=== PATIENT | female | born 1990 | race Caucasian/White ===

== ENCOUNTER 2024-08-24 10:55 | Inpatient (IN) ==
--- NOTE | 2024-08-24 11:47 | Emergency Department Note ---
Impression & Plan Alcohol abuse with withdrawal, Fall, Acute pain of left knee, CHI (closed head injury), Contusion of face ED Provider Note NAME: CARLOS KOEHLER AGE: 33 SEX: F : 1990 ARRIVES VIA: Walk-In INFORMANT: Patient, Friend ED PROVIDER(S): Dyaln Murray MD CHIEF COMPLAINT: Alcohol use, fall MEDICAL DECISION MAKING: Patient presents due to concern for fall. The patient does have significant mechanism of injury but this occurred greater than 8 hours ago which would have been around the time of her last drink she believes. IV was established and blood work was obtained along with an alcohol level. CT head cervical spine and face obtained. The patient did have plain x-rays performed of the chest and pelvis for screening purposes given the mechanism but the patient has no evidence of bruising or TTP over that area. Patient did have extremity films completed of the bilateral lower extremities. Patient ordered Ofirmev and ice pack applied. Patient's blood work shows a normal white count H&H and platelet count kidney function is unremarkable. Mild ovation anion gap at 13. Alcohol of 105. The patient's plain images as well as CTs do not show any obvious fracture. I did inform the patient of these findings. The patient did have a negative FAST exam at bedside. After further discussion the patient is concerned about the possibility of withdrawal. I did discuss possibility of withdrawal treatment as well as detox in hospital. Patient would like to do this. Patient does have mild tremors and associated tachycardia. Patient was ordered IV Ativan 2 mg and alcohol withdrawal protocol initiated. I did speak the on-call hospital service Dulce Hartamn PA-C and the patient was admitted by Dr. Worrell. I discussed with the inpatient service that the patient was not ambulated in light of the patient's left knee pain. The patient does not have overt fracture on x- ray but if clinically indicated may benefit from a CT of the knee. Critical Care: I have personally spent 35 minutes of critical care time in direct management of this patient. This includes bedside care, interpretation of diagnostic studies, and testing, discussion with consultants, patient, and family members, and other require inpatient management activities. This 35 minutes is in excess of all separately billable procedures. Discussion w/ other healthcare providers: Dulce Hartman PA-C and Dr. Worrell Prior /Outside records reviewed: None Differential diagnosis: Fracture, dislocation, contusion, strain, sprain, ICH, hemothorax, intra- abdominal injury, anemia among other causes were considered. Diagnostics, as interpreted by me: ECG: Normal sinus rhythm, rate of 52, normal intervals, normal axis no ST elevations or T WI. Cardiac monitoring: An order was placed for continuous cardiac monitoring. The monitor shows a rate of 102 with tachycardic and regular rhythm. Patient was placed on pulse oximetry Medical decision rules: None Imaging studies: I informally interpreted the patient's left knee x-ray does not show obvious fracture or dislocation with formal report to follow. HPI: Patient presents due to concern for fall. The patient reportedly fell down approximate 12 steps around 3 AM in the morning. Patient is accompanied by a friend who reports that the patient was blacked out at that time. The patient does admit to a fair Zaidi drinking last evening. The patient states that she primarily has pain to her left knee. Patient does not remember the fall. She does not take any blood thinning medications. The patient states that she does believe that she struck the left side of her face but was able to get some ice on it this morning. The patient denies any vomiting. Patient is hoping to get some help for her drinking as she does know that her alcohol use is a problem. Patient denies any chest pains or difficulty with breathing. Patient Nuys any abdominal pain or back pain. No neck pain. Patient states that her primary concern is she feels as though she cannot bear weight on her left knee. PAST MEDICAL HISTORY: No pertinent past medical history PAST SURGICAL HISTORY: No pertinent past surgical history SOCIAL HISTORY: Alcohol use. Tobacco use. Denies drug use. Speaks Algerian. HOME MEDICATIONS: See Below ALLERGIES: See Below VITALS: See Below PHYSICAL EXAMINATION: GENERAL: NAD, non-toxic. Left-sided facial swelling noted. EYE EXAM: Normal conjunctiva. PERRL, no anisocoria and EOM's grossly intact w/o pain. No hyphema or hypopyon. No proptosis. No subconjunctival hemorrhage. Head: Left-sided forehead and facial swelling with associated ecchymosis. No periorbital swelling. No proptosis. OROPHARYNX: Moist mucus membranes, grossly normal dentition. NECK: Trachea midline, no stridor. Supple, no nuchal rigidity, no adenopathy, non-tender. No signs of meningismus. FROM of the neck with good chin to chest and neck extension. No midline C-spine TTP. Chest: No reproducible anterior lateral posterior rib pain. LUNGS: Clear to auscultation. Normal chest wall mechanics. HEART: NSR, no MRG. ABDOMEN: Abdomen soft, non-tender, no masses, no rebound or guarding. BACK: No CVA TTP. No midline or paraspinal thoracic or lumbar TTP. No bruising noted. SKIN: Bruising is noted to the left knee as well as the left side of the face. UPPER EXTREMITIES: Upper extremities are grossly normal. No TTP or deformity. LOWER EXTREMITIES: Right lower extremity with mild TTP to the right ankle no obvious deformity. Left sided knee pain and associated ecchymosis. Difficulty with flexion secondary to pain. Neurovascular intact distally and compartments are soft. NEURO EXAM: A&O x3, cranial nerves II-XII grossly intact, normal speech, moves all 4 extremities. Past Med/Surg History Problem List (Updated 08/24/24 @ 19:09 by Dylan Murray MD) Contusion of face (Acute) CHI (closed head injury) (Acute) Acute pain of left knee (Acute) Alcohol abuse with withdrawal (Acute) Tobacco use disorder Left leg weakness Pain of left knee and lower leg Fall (Acute) Alcohol withdrawal syndrome without complication Alcohol use disorder, moderate, dependence Depression Social History Smoking Status: Current every day smoker Tobacco Type: Cigarettes Preferred Language: Algerian Feels Safe at Home: Yes Allergies Allergies Allergy/AdvReac Type Severity Reaction Status Date / Time none Allergy Unknown Uncoded 08/24/24 16:22 Home Meds Home Medications Medication Instructions Recorded Confirmed No Known Home Medications 08/24/24 08/24/24 Results & Data (ED) Vital Signs Vital Signs - 24 hr 08/24/24 11:25 08/24/24 16:19 08/24/24 16:19 Temperature 36.9 C Temperature Source Temporal Artery Scan Pulse Rate 114 H 84 Pulse Rate [Right Finger] 84 Respiratory Rate 18 22 18 Respiratory Effort / Characteristics Spontaneous Non-Labored Spontaneous Respiratory Depth Normal Normal Respiratory Pattern Regular Blood Pressure 172/89 H Blood Pressure [Right Arm] 139/84 Blood Pressure Mean 116 Blood Pressure Mean [Right Arm] 102 Pulse Oximetry 100 99 98 Oxygen Delivery Method Room Air Room Air Room Air Sepsis Recent Fever Within 48 Hours No Sepsis New/Unexplained Change in Mental Status N/A Sepsis Action Taken by Nursing No Action Required 08/24/24 16:23 08/24/24 17:44 Temperature 37.1 C Temperature Source Oral Pulse Rate 87 Pulse Rate [Right Finger] 102 H Respiratory Rate 16 Respiratory Effort / Characteristics Non-Labored Spontaneous Respiratory Depth Normal Respiratory Pattern Regular Blood Pressure Blood Pressure [Right Arm] 125/80 Blood Pressure Mean Blood Pressure Mean [Right Arm] 95 Pulse Oximetry 96 Oxygen Delivery Method Room Air Sepsis Recent Fever Within 48 Hours Sepsis New/Unexplained Change in Mental Status Sepsis Action Taken by [facility] Medications Current Medication List: was personally reviewed by me Laboratory Data Attestation: I reviewed the patient's lab results. 08/24/24 11:53 08/24/24 11:53 Lab Results 08/24/24 Range/Units 11:53 WBC 9.09 (4.8-10.8) K/ul RBC 4.49 (4.20-5.40) M/uL Hgb 13.8 (12.0-16.0) g/dl Hct 40.6 (37.0-47.0) % MCV 90.4 (80.0-100.0) fL MCH 30.7 (25.0-34.0) pg MCHC 34.0 (32.0-36.0) g/dL RDW Std Deviation 42.3 (36.4-46.3) fL RDW Coeff of Pierre 12.8 (11.5-14.5) % Plt Count 379 (130-400) K/uL MPV 8.6 L (9.4-12.4) fL Immature Gran % (Auto) 0.2 % Neut % (Auto) 66.9 % Lymph % (Auto) 25.3 % Erath % (Auto) 6.5 % Eos % (Auto) 0.4 % Baso % (Auto) 0.7 % Neut # (Auto) 6.08 (1.40-6.50) K/uL Lymph # (Auto) 2.30 (1.20-3.40) K/uL Erath # (Auto) 0.59 (0.11-0.59) K/uL Eos # (Auto) 0.04 (0.00-0.50) K/uL Baso # (Auto) 0.06 (0.00-0.20) K/uL Immature Gran # (Auto) 0.02 (0.01-0.20) K/uL Sodium 141 (136-145) mmol/L Potassium 3.7 (3.5-5.1) mmol/L Chloride 104 (98-107) mmol/L Carbon Dioxide 24 (21-32) mmol/L Anion Gap 13 H (3-11) BUN 14 (6-23) mg/dl Creatinine 0.68 (0.6-1.2) mg/dl Est Cr Clr Drug Dosing 102.6 ml/min eGFR 118.60 BUN/Creatinine Ratio 20.6 H (10-20) Glucose 102 H (70-99(Fasting)) mg/dl Calcium 8.8 (8.6-10.3) mg/dl Total Bilirubin 0.7 (0.2-1.0) mg/dl AST 27 (13-39) U/L ALT 18 (7-52) U/L Alkaline Phosphatase 75 (34-104) U/L Total Protein 7.9 (6.0-8.3) gm/dl Albumin 4.6 (3.4-5.0) gm/dl Globulin 3.3 (2.5-4.0) gm/dl Albumin/Globulin Ratio 1.4 (0.9-2) Ethyl Alcohol mg/dL 105.5 H (<10.0) mg/dl Administered Medications Discontinued Medications Gabapentin (Gabapentin 600 Mg Tab) 1,200 mg PO NOW STA Stop: 08/24/24 16:15 Last Admin: 08/24/24 17:46 Dose: 1,200 mg Documented By: REJI Sodium Chloride (Nss) 500 mls @ 999 mls/hr IV .Q31M RIA Stop: 08/24/24 12:15 Last Infusion: 08/24/24 13:19 Dose: Infused Documented By: Admin: 08/24/24 12:05 Dose: 999 mls/hr Documented By: AGUSTÍN Acetaminophen (Ofirmev) 1,000 mg in 100 mls @ 400 mls/hr IV NOW STA Stop: 08/24/24 11:58 Last Infusion: 08/24/24 13:19 Dose: Infused Documented By: Admin: 08/24/24 12:05 Dose: 400 mls/hr Documented By: AGUSTÍN Lorazepam (Lorazepam 2 Mg/1 Ml Vial) 2 mg IV NOW STA Stop: 08/24/24 15:23 Last Admin: 08/24/24 16:21 Dose: 2 mg Documented By: REJI Imaging Data Radiologist's Impression: Cervical Spine CT 08/24/24 11:44 CT cervical spine wo con CLINICAL HISTORY: etoh, fall, L sided facial contusion TECHNIQUE: Multidetector row helical CT of the cervical spine was performed without administration of intravenous contrast. Coronal and sagittal reformations were obtained. Automated dose lowering techniques and/or adjustment according to patient size were utilized for this exam. Comparison: None available at the time of this dictation. FINDINGS: No acute fractures or subluxations are identified. The vertebral body heights and disk spaces are well maintained. The alignment is normal. Soft tissues are unremarkable. IMPRESSION: No evidence of acute bony injury. ACT 112: Negative or not required by law. Electronically signed by: Eugene Chavez M.D. 08/24/2024 1:[address] 08/24/24 11:[address] WITHOUT CONTRAST CLINICAL HISTORY: etoh, fall, L sided facial contusion COMPARISON STUDY: MRI of the brain February 11, 2010. TECHNIQUE: A maxillofacial CT was performed without IV contrast. Coronal and sagittal reformats were viewed. Automated exposure control was utilized for the study. A dose lowering technique was utilized adhering to the principles of ALARA. FINDINGS: Left facial/temporal scalp contusions are present. The globes are intact. There is no retrobulbar hematoma. No acute facial bone fracture is present. Alignment of the temporomandibular joints is anatomic anatomic. There is no skull base fracture. There is mild sinus mucosal thickening. IMPRESSION: No acute facial fracture. ACT 112: Negative or not required by law. Electronically signed by: Jerman Trevino M.D. 08/24/2024 2:[address] 08/24/24 11:44 CT OF THE HEAD WITHOUT CONTRAST CLINICAL HISTORY: etoh, fall, L sided facial contusion COMPARISON STUDY: MRI of the brain February 11, 2010. CT DOSE: 1313.96 mGy.cm TECHNIQUE: Helical axial images of the head were obtained without IV contrast. Automated exposure control was utilized for the study. A dose lowering technique was utilized adhering to the principles of ALARA. FINDINGS: No acute intracranial hemorrhage, midline shift or mass effect is present. The ventricular system is unremarkable. The basal cisterns are patent. No extra-axial collections are present. There are no findings to suggest acute dural sinus thrombosis or acute territorial infarct. Left temporal scalp contusion is present. There are no calvarial fractures. IMPRESSION: 1. No acute intracranial findings. 2. Left frontal scalp contusion. No calvarial fractures. ACT 112: Negative or not required by law. Electronically signed by: Jerman Trevino M.D. 08/24/2024 2:02 PM Chest X-Ray 08/24/24 11:45 XR chest 1V portable CLINICAL HISTORY: Trauma COMPARISON STUDY: No previous studies for comparison. FINDINGS: Lung volumes are normal. Lungs are clear. There is no pneumothorax or pleural effusion. Cardiac size is normal. Mediastinal contours are normal. There is no evidence for pulmonary edema. IMPRESSION: No acute cardiopulmonary findings. ACT 112: Negative or not required by law. Electronically signed by: Jeramn Trevino M.D. 08/24/2024 2:55 PM Pelvis X-Ray 08/24/24 11:45 XR pelvis 1-2V routine CLINICAL HISTORY: Trauma TECHNIQUE: A single frontal view of the pelvis was obtained. Comparison: None available at the time of this dictation. FINDINGS: There is no evidence of an acute fracture. Joint spaces are well-preserved. No soft tissue abnormality is seen. IMPRESSION: No evidence of acute osseous injury. ACT 112: Negative or not required by law. Electronically signed by: Eugene Chavez M.D. 08/24/2024 2:56 PM Ankle X-Ray 08/24/24 11:47 XR ankle RT min 3V routine CLINICAL HISTORY: Right ankle pain following injury. COMPARISON: None FINDINGS: Alignment of the right ankle is anatomic. There is no acute fracture. Talar dome is intact. Joint spaces are preserved. IMPRESSION: No fracture or dislocation within the right ankle. ACT 112: Negative or not required by law. Electronically signed by: Jerman Trevino M.D. 08/24/2024 2:54 PM Femur X-Ray 08/24/24 11:47 XR femur LT 2V routine CLINICAL HISTORY: Lower Extremity Trauma COMPARISON: CT of the abdomen and pelvis December 23, 2005. FINDINGS: There is no left femoral fracture. Alignment of the left hip and left knee is anatomic. No osseous lesions within the left femur are present. IMPRESSION: No left femoral fracture. ACT 112: Negative or not required by law. Electronically signed by: Jerman Trevino M.D. 08/24/2024 2:48 PM Knee X-Ray 08/24/24 11:47 XR knee LT 1 or 2V routine CLINICAL HISTORY: Left knee pain following injury. COMPARISON: None FINDINGS: Alignment of the left knee is anatomic. There is no acute fracture. There is no joint effusion. There are no osseous lesions. IMPRESSION: No fractures within the left knee. No left knee joint effusion. ACT 112: Negative or not required by law. Electronically signed by: Jerman Trevino M.D. 08/24/2024 2:54 PM Tibia/Fibula X-Ray 08/24/24 11:47 XR tibia fibula LT 2V CLINICAL HISTORY: Lower leg trauma TECHNIQUE: 2 radiographic views of the left leg were obtained. Comparison: None available at the time of this dictation. FINDINGS: There is no evidence of an acute fracture. Joint spaces are well-preserved. No soft tissue abnormality is seen. IMPRESSION: No evidence of acute osseous injury. ACT 112: Negative or not required by law. Electronically signed by: Eugene Chavez M.D. 08/24/2024 2:53 PM Discharge Plan Visit Data Chief Complaint: Fall Stated Complaint: FELL, LT KNEE PAIN/CAN'T WALK, HIT LT SIDE OF HEAD ED Provider: Dylan Murray Discharge Problem: Alcohol abuse with withdrawal, Fall, Acute pain of left knee, CHI (closed head injury), Contusion of face Forms Stand Alone Forms: [employer] Prescriptions Prescriptions: No Action No Known Home Medications Referrals Referrals: PCP,NO [Physician] - Discharge Problem: Fall Qualifiers: Encounter type: initial encounter Qualified Code(s): W19.XXXA - Unspecified fall, initial encounter CHI (closed head injury) Qualifiers: Encounter type: initial encounter Qualified Code(s): S09.90XA - Unspecified injury of head, initial encounter Contusion of face Qualifiers: Encounter type: initial encounter Qualified Code(s): S00.83XA - Contusion of other part of head, initial encounter
[2024-08-24] MEDS: SODIUM CHLORIDE 0.9% 500 ML IV SCH (12:05)
[2024-08-24] MEDS: ACETAMINOPHEN 1,000 MG/100 ML VIAL IV STA (12:05)
[2024-08-24 12:36] LABS: Basophils # (auto) 0.06 K/uL (0.00-0.20); Basophils % (auto) 0.7 %; Eosinophils # (auto) 0.04 K/uL (0.00-0.50); Eosinophils % (auto) 0.4 %; Hematocrit (blood only) 40.6 % (37.0-47.0); Hemoglobin 13.8 g/dl (12.0-16.0); Immature Granulocytes # (auto) 0.02 K/uL (0.01-0.20); Immature Granulocytes % (auto) 0.2 %; Lymphocytes % (auto) 25.3 %; Mean Corpuscular Hemoglobin 30.7 pg (25.0-34.0); Mean Corpuscular Volume 90.4 fL (80.0-100.0); Mean Platelet Volume 8.6 fL (9.4-12.4); Monocytes # (auto) 0.59 K/uL (0.11-0.59); Monocytes % (auto) 6.5 %; Neutrophils # (auto) 6.08 K/uL (1.40-6.50); Neutrophils % (auto) 66.9 %; Platelet Count 379 K/uL (130-400); RDW Coefficient of Variation 12.8 % (11.5-14.5); RDW Standard Deviation 42.3 fL (36.4-46.3); Red Blood Count 4.49 M/uL (4.20-5.40); White Blood Count 9.09 K/ul (4.8-10.8)
[2024-08-24 12:51] LABS: Albumin Globulin Ratio 1.4 (0.9-2); Albumin Level 4.6 gm/dl (3.4-5.0); BUN Creatinine Ratio 20.6 (10-20); Bilirubin,Total 0.7 mg/dl (0.2-1.0); Calcium 8.8 mg/dl (8.6-10.3); Creatinine Clr Calc Pharmacy 102.6 ml/min; Globulin 3.3 gm/dl (2.5-4.0); Potassium 3.7 mmol/L (3.5-5.1); Total Protein 7.9 gm/dl (6.0-8.3)
--- NOTE | 2024-08-24 14:01 | CT Scan Report ---
CT cervical spine wo con CLINICAL HISTORY: etoh, fall, L sided facial contusion TECHNIQUE: Multidetector row helical CT of the cervical spine was performed without administration of intravenous contrast. Coronal and sagittal reformations were obtained. Automated dose lowering techn iques and/or adjustment according to patient size were utilized for this exam. Comparison: None available at the time of this dictation. FINDINGS: No acute fractures or subluxations are identified. The vertebral body heights and disk spaces are wel l maintained. The alignment is normal. Soft tissues are unremarkable. IMPRESSION: No evidence of acute bony injury. ACT 112: Negative or not required by law. Electronically signed by: Eugene Chavez M.D. 08/24/2024 1:59 PM
--- NOTE | 2024-08-24 14:03 | CT Scan Report ---
CT OF THE HEAD WITHOUT CONTRAST CLINICAL HISTORY: etoh, fall, L sided facial contusion COMPARISON STUDY: MRI of the brain February 11, 2010. CT DOSE: 1313.96 mGy.cm TECHNIQUE: Helical axial images of the head were obtained without IV contrast. Automated exposure con trol was utilized for the study. A dose lowering technique was utilized adhering to the principles o f ALARA. FINDINGS: No acute intracranial hemorrhage, midline shift or mass effect is present. The ventricular system is unremarkable. The basal cisterns are patent. No extra-axial collections are present. There are no findings to suggest acute dural sinus thrombosis or acute territorial infarct. Left temporal s calp contusion is present. There are no calvarial fractures. IMPRESSION: 1. No acute intracranial findings. 2. Left frontal scalp contusion. No calvarial fractures. ACT 112: Negative or not required by law. Electronically signed by: Jerman Trevino M.D. 08/24/2024 2:02 PM
--- NOTE | 2024-08-24 14:19 | Electrocardiogram Report ---
Test Reason : Blood Pressure : */* mmHG Vent. Rate : 82 BPM Atrial Rate : 82 BPM P-R Int : 126 ms QRS Dur : 82 ms QT Int : 372 ms P-R-T Axes : 51 15 37 degrees QTcB Int : 434 ms Normal sinus rhythm with sinus arrhythmia Normal ECG No previous ECGs available Confirmed by Michael Galan ([id number]) on 08/24/2024 2:19:04 PM Referred By: Confirmed By: Michael Galan
--- NOTE | 2024-08-24 14:29 | CT Scan Report ---
MAXILLOFACIAL CT WITHOUT CONTRAST CLINICAL HISTORY: etoh, fall, L sided facial contusion COMPARISON STUDY: MRI of the brain February 11, 2010. TECHNIQUE: A maxillofacial CT was performed without IV contrast. Coronal and sagittal reformats were viewed. Automated exposure control was utilized for the study. A dose lowering technique was utiliz ed adhering to the principles of ALARA. FINDINGS: Left facial/temporal scalp contusions are present. The globes are intact. There is no retro bulbar hematoma. No acute facial bone fracture is present. Alignment of the temporomandibular joints is anatomic anatomic. There is no skull base fracture. There is mild sinus mucosal thickening. IMPRESSION: No acute facial fracture. ACT 112: Negative or not required by law. Electronically signed by: Jerman Trevino M.D. 08/24/2024 2:28 PM
--- NOTE | 2024-08-24 14:49 | XRay Report ---
XR femur LT 2V routine CLINICAL HISTORY: Lower Extremity Trauma COMPARISON: CT of the abdomen and pelvis December 23, 2005. FINDINGS: There is no left femoral fracture. Alignment of the left hip and left knee is anatomic. No osseous lesions within the left femur are present. IMPRESSION: No left femoral fracture. ACT 112: Negative or not required by law. Electronically signed by: Jerman Trevino M.D. 08/24/2024 2:48 PM
--- NOTE | 2024-08-24 14:55 | XRay Report ---
XR knee LT 1 or 2V routine CLINICAL HISTORY: Left knee pain following injury. COMPARISON: None FINDINGS: Alignment of the left knee is anatomic. There is no acute fracture. There is no joint effu sheila. There are no osseous lesions. IMPRESSION: No fractures within the left knee. No left knee joint effusion. ACT 112: Negative or not required by law. Electronically signed by: Jerman Trevino M.D. 08/24/2024 2:54 PM
--- NOTE | 2024-08-24 14:55 | XRay Report ---
XR tibia fibula LT 2V CLINICAL HISTORY: Lower leg trauma TECHNIQUE: 2 radiographic views of the left leg were obtained. Comparison: None available at the time of this dictation. FINDINGS: There is no evidence of an acute fracture. Joint spaces are well-preserved. No soft tissue abnormalit y is seen. IMPRESSION: No evidence of acute osseous injury. ACT 112: Negative or not required by law. Electronically signed by: Eugene Chavez M.D. 08/24/2024 2:53 PM
--- NOTE | 2024-08-24 14:56 | XRay Report ---
XR ankle RT min 3V routine CLINICAL HISTORY: Right ankle pain following injury. COMPARISON: None FINDINGS: Alignment of the right ankle is anatomic. There is no acute fracture. Talar dome is intact . Joint spaces are preserved. IMPRESSION: No fracture or dislocation within the right ankle. ACT 112: Negative or not required by law. Electronically signed by: Jerman Trevino M.D. 08/24/2024 2:54 PM
--- NOTE | 2024-08-24 14:57 | XRay Report ---
XR pelvis 1-2V routine CLINICAL HISTORY: Trauma TECHNIQUE: A single frontal view of the pelvis was obtained. Comparison: None available at the time of this dictation. FINDINGS: There is no evidence of an acute fracture. Joint spaces are well-preserved. No soft tissue abnormalit y is seen. IMPRESSION: No evidence of acute osseous injury. ACT 112: Negative or not required by law. Electronically signed by: Eugene Chavez M.D. 08/24/2024 2:56 PM
--- NOTE | 2024-08-24 14:57 | XRay Report ---
XR chest 1V portable CLINICAL HISTORY: Trauma COMPARISON STUDY: No previous studies for comparison. FINDINGS: Lung volumes are normal. Lungs are clear. There is no pneumothorax or pleural effusion. Car diac size is normal. Mediastinal contours are normal. There is no evidence for pulmonary edema. IMPRESSION: No acute cardiopulmonary findings. ACT 112: Negative or not required by law. Electronically signed by: Jerman Trevino M.D. 08/24/2024 2:55 PM
[2024-08-24] MEDS ORDERED: Ativan IV Alcohol Withdrawal--Active Protocol IV PRN (15:22)
[2024-08-24] MEDS ORDERED: LORazepam 2 MG/1 ML VIAL IV PRN ×3 (15:22)
[2024-08-24] MEDS ORDERED: DICLOFENAC SOD 1% GEL 100 GM TUBE EXT PRN (16:16)
[2024-08-24] MEDS: LORazepam 2 MG/1 ML VIAL IV STA (16:21)
--- NOTE | 2024-08-24 16:51 | History & Physical Report ---
Date of Service August 24, 2024 Assessment & Plan (1) Fall: Plan: EKG within normal limits, no evidence of neurologic etiology -denies precursor, does not remember falling -denies other symptoms such as chest pain or SOB -likely mechanical in setting of alcohol intoxication --physical therapy ordered --voltaren cream and tylenol for leeft leg pain (2) Alcohol withdrawal syndrome without complication: Plan: -as evidenced by tremors and fatigue, tachycardia -no evidence of seizures or end organ damage --start gabapentin taper with loading dose for withdrawal --ativan for seizures or high withdrawal scores --seizure practautions and telemetry ordered --will discuss with social work team regarding rehab placement post admission (3) Alcohol use disorder, moderate, dependence: Plan: -drinks a fifth of vodka daily -interested in sobriety -has tremors on exam, denies seizures in past with alcohol withdrawal -feels safe at home, good family support system --start low dose thiamine and folic acid --check B12 level in morning, PT/INR, hepatic panel -check HIV, Hep C in the morning (4) Depression: Plan: -per patient has been contributing factor to alcohol use --f/u outpatient with PCP regarding starting treatment for depression (5) Pain of left knee and lower leg: Plan: -2/2 mechanical fall --voltaren cream and tylenol (6) Left leg weakness: Plan: -2/2 mechanical fall, imaging without evidence of fracture --PT ordered (7) Tobacco use disorder: Plan: -smokes a pack a day --nicotine patch prn Plan -regular diet, lovenox, miralax for bowel regiment I spent a total of 75 minutes coordinating, documenting, and providing care for this patient excluding time spent in the performance of separately billed services. Admission and Anticipated Discharge Date Anticipated date of discharge: 08/26/24 History of Present Illness Chief Complaint: Fall Primary Care Provider: Rosa Rodriguez DO 33-year-old female with no past medical history presenting post fall. Fall happened last night after consuming a large amount of alcohol. She blacked out during this time. She states she likely hit her head. She also states she has some left leg pain. Did not denote any dizziness chest pain or other associated symptoms. Does not remember falling. No history of drug use. Feels safe at home. Denies abuse. Daily tobacco smoker. Drinks about 1/5 of alcohol daily. Family is history of alcohol use. Interested in getting sober. Allergies Allergy/AdvReac Type Severity Reaction Status Date / Time none Allergy Unknown Uncoded 08/24/24 16:22 Home Medications Medication Instructions Recorded Confirmed Type No Known Home Medications 08/24/24 08/24/24 History Past Med/Surg History Problem List (Updated 08/24/24 @ 16:49 by Aki Oconnor MD) Tobacco use disorder Left leg weakness Pain of left knee and lower leg Fall Alcohol withdrawal syndrome without complication Alcohol use disorder, moderate, dependence Depression Social History Smoking Status: Current every day smoker Tobacco Type: Cigarettes Preferred Language: Syriac Feels Safe at Home: Yes Review of Systems Review of Systems: Constitutional: fatigue ENT/Mouth: No Hearing Changes, No Ear Pain, No Nasal Congestion, No Sinus Pain, No Hoarseness, No sore throat, No Rhinorrhea, No Swallowing Difficulty Eyes: No Eye Pain, No Swelling, No Redness, No Foreign Body, No Discharge, No Vision Changes Cardiovascular: No Chest Pain, No SOB, No PND, No Dyspnea on Exertion, No Orthopnea, No Claudication, No Edema, No Palpitations Respiratory: No Cough, No Sputum, No Wheezing, No Smoke Exposure, No Dyspnea Gastrointestinal: No Nausea, No Vomiting, No Diarrhea, No Constipation, No Pain, No Heartburn, No Anorexia, No Dysphagia, No Hematochezia, No Melena, No Flatulence, No Jaundice Genitourinary: No Dysmenorrhea, No DUB, No Dyspareunia, No Dysuria, No Urinary Frequency, No Hematuria, No Urinary Incontinence, No Urgency, No Flank Pain, No Urinary Flow Changes, No Hesitancy Musculoskeletal: left knee and leg pain Neuro: slight weakness of left knee (2/2 pain) Psych: depression Heme/Lymph: brusing on left knee, swelling noted, left frontal facial contusion Endocrine: No Polyuria, No Polydipsia, No Temperature Intolerance Physical Exam Physical Exam: VITALS: Reviewed. WEIGHT/BMI reviewed. GEN: appears slightly uncomfortable PSYCH: Good Judgment. AOx3. Normal memory, mood, and affect. HEENT -Head: noted left facial brusing -Eyes: PERRL, EOMI. No discharge or redn ess; -Ears: External ears are normal. Normal TMs. -Nose: Normal nares. -Mouth and throat: MMM. Normal gums, muc sebastián, palate,. Good dentition. NECK: Supple, with no masses. CV: tachycardic, regular rhythm LUNGS: CTAB, no w/r/c. ABD: Soft, NT/ND, NBS, no masses or organomegaly. : N/A SKIN: Warm, well perfused. No skin rashes or abnormal lesions. MSK: slight left leg weakness EXT: No clubbing, cyanosis, or edema. NEURO: slight left leg weakness 2/2 bruising and fall, no other defcitis or weakness, bilateral hand tremors noted Results & Data Results & Data Vital Signs (Past 12 Hours) Vital Signs Temp Pulse Resp BP Pulse Ox O2 Del Method 08/24/24 11:25 36.9 C 114 H 18 172/89 H 100 Room Air Laboratory Results Laboratory Results WBC 9.09 K/ul (4.8-10.8) 08/24/24 11:53 RBC 4.49 M/uL (4.20-5.40) 08/24/24 11:53 Hgb 13.8 g/dl (12.0-16.0) 08/24/24 11:53 Hct 40.6 % (37.0-47.0) 08/24/24 11:53 MCV 90.4 fL (80.0-100.0) 08/24/24 11:53 MCH 30.7 pg (25.0-34.0) 08/24/24 11:53 MCHC 34.0 g/dL (32.0-36.0) 08/24/24 11:53 RDW Std Deviation 42.3 fL (36.4-46.3) 08/24/24 11:53 RDW Coeff of Pierre 12.8 % (11.5-14.5) 08/24/24 11:53 Plt Count 379 K/uL (130-400) 08/24/24 11:53 MPV 8.6 fL (9.4-12.4) L 08/24/24 11:53 Immature Gran % (Auto) 0.2 % 08/24/24 11:53 Neut % (Auto) 66.9 % 08/24/24 11:53 Lymph % (Auto) 25.3 % 08/24/24 11:53 Hinds % (Auto) 6.5 % 08/24/24 11:53 Eos % (Auto) 0.4 % 08/24/24 11:53 Baso % (Auto) 0.7 % 08/24/24 11:53 Neut # (Auto) 6.08 K/uL (1.40-6.50) 08/24/24 11:53 Lymph # (Auto) 2.30 K/uL (1.20-3.40) 08/24/24 11:53 Hinds # (Auto) 0.59 K/uL (0.11-0.59) 08/24/24 11:53 Eos # (Auto) 0.04 K/uL (0.00-0.50) 08/24/24 11:53 Baso # (Auto) 0.06 K/uL (0.00-0.20) 08/24/24 11:53 Immature Gran # (Auto) 0.02 K/uL (0.01-0.20) 08/24/24 11:53 Sodium 141 mmol/L (136-145) 08/24/24 11:53 Potassium 3.7 mmol/L (3.5-5.1) 08/24/24 11:53 Chloride 104 mmol/L (98-107) 08/24/24 11:53 Carbon Dioxide 24 mmol/L (21-32) 08/24/24 11:53 Anion Gap 13 (3-11) H 08/24/24 11:53 BUN 14 mg/dl (6-23) 08/24/24 11:53 Creatinine 0.68 mg/dl (0.6-1.2) 08/24/24 11:53 Est Cr Clr Drug Dosing 102.6 ml/min 08/24/24 11:53 eGFR 118.60 08/24/24 11:53 BUN/Creatinine Ratio 20.6 (10-20) H 08/24/24 11:53 Glucose 102 mg/dl (70-99(Fasting)) H 08/24/24 11:53 Calcium 8.8 mg/dl (8.6-10.3) 08/24/24 11:53 Total Bilirubin 0.7 mg/dl (0.2-1.0) 08/24/24 11:53 AST 27 U/L (13-39) 08/24/24 11:53 ALT 18 U/L (7-52) 08/24/24 11:53 Alkaline Phosphatase 75 U/L (34-104) 08/24/24 11:53 Total Protein 7.9 gm/dl (6.0-8.3) 08/24/24 11:53 Albumin 4.6 gm/dl (3.4-5.0) 08/24/24 11:53 Globulin 3.3 gm/dl (2.5-4.0) 08/24/24 11:53 Albumin/Globulin Ratio 1.4 (0.9-2) 08/24/24 11:53 Ethyl Alcohol mg/dL 105.5 mg/dl (<10.0) H 08/24/24 11:[address] 08/24/24 11:44 CT cervical spine wo con CLINICAL HISTORY: etoh, fall, L sided facial contusion TECHNIQUE: Multidetector row helical CT of the cervical spine was performed without administration of intravenous contrast. Coronal and sagittal reformations were obtained. Automated dose lowering techniques and/or adjustment according to patient size were utilized for this exam. Comparison: None available at the time of this dictation. FINDINGS: No acute fractures or subluxations are identified. The vertebral body heights and disk spaces are well maintained. The alignment is normal. Soft tissues are unremarkable. IMPRESSION: No evidence of acute bony injury. ACT 112: Negative or not required by law. Electronically signed by: Eugene Chavez M.D. 08/24/2024 1:[address] 08/24/24 11:[address] WITHOUT CONTRAST CLINICAL HISTORY: etoh, fall, L sided facial contusion COMPARISON STUDY: MRI of the brain February 11, 2010. TECHNIQUE: A maxillofacial CT was performed without IV contrast. Coronal and sagittal reformats were viewed. Automated exposure control was utilized for the study. A dose lowering technique was utilized adhering to the principles of ALARA. FINDINGS: Left facial/temporal scalp contusions are present. The globes are intact. There is no retrobulbar hematoma. No acute facial bone fracture is present. Alignment of the temporomandibular joints is anatomic anatomic. There is no skull base fracture. There is mild sinus mucosal thickening. IMPRESSION: No acute facial fracture. ACT 112: Negative or not required by law. Electronically signed by: Jerman Trevino M.D. 08/24/2024 2:[address] 08/24/24 11:44 CT OF THE HEAD WITHOUT CONTRAST CLINICAL HISTORY: etoh, fall, L sided facial contusion COMPARISON STUDY: MRI of the brain February 11, 2010. CT DOSE: 1313.96 mGy.cm TECHNIQUE: Helical axial images of the head were obtained without IV contrast. Automated exposure control was utilized for the study. A dose lowering technique was utilized adhering to the principles of ALARA. FINDINGS: No acute intracranial hemorrhage, midline shift or mass effect is present. The ventricular system is unremarkable. The basal cisterns are patent. No extra-axial collections are present. There are no findings to suggest acute dural sinus thrombosis or acute territorial infarct. Left temporal scalp contusion is present. There are no calvarial fractures. IMPRESSION: 1. No acute intracranial findings. 2. Left frontal scalp contusion. No calvarial fractures. ACT 112: Negative or not required by law. Electronically signed by: Jerman Trevino M.D. 08/24/2024 2:02 PM Chest X-Ray 08/24/24 11:45 XR chest 1V portable CLINICAL HISTORY: Trauma COMPARISON STUDY: No previous studies for comparison. FINDINGS: Lung volumes are normal. Lungs are clear. There is no pneumothorax or pleural effusion. Cardiac size is normal. Mediastinal contours are normal. There is no evidence for pulmonary edema. IMPRESSION: No acute cardiopulmonary findings. ACT 112: Negative or not required by law. Electronically signed by: Jerman Trevino M.D. 08/24/2024 2:55 PM Pelvis X-Ray 08/24/24 11:45 XR pelvis 1-2V routine CLINICAL HISTORY: Trauma TECHNIQUE: A single frontal view of the pelvis was obtained. Comparison: None available at the time of this dictation. FINDINGS: There is no evidence of an acute fracture. Joint spaces are well-preserved. No soft tissue abnormality is seen. IMPRESSION: No evidence of acute osseous injury. ACT 112: Negative or not required by law. Electronically signed by: Eugene Chavez M.D. 08/24/2024 2:56 PM Ankle X-Ray 08/24/24 11:47 XR ankle RT min 3V routine CLINICAL HISTORY: Right ankle pain following injury. COMPARISON: None FINDINGS: Alignment of the right ankle is anatomic. There is no acute fracture. Talar dome is intact. Joint spaces are preserved. IMPRESSION: No fracture or dislocation within the right ankle. ACT 112: Negative or not required by law. Electronically signed by: Jerman Trevino M.D. 08/24/2024 2:54 PM Femur X-Ray 08/24/24 11:47 XR femur LT 2V routine CLINICAL HISTORY: Lower Extremity Trauma COMPARISON: CT of the abdomen and pelvis December 23, 2005. FINDINGS: There is no left femoral fracture. Alignment of the left hip and left knee is anatomic. No osseous lesions within the left femur are present. IMPRESSION: No left femoral fracture. ACT 112: Negative or not required by law. Electronically signed by: Jerman Trevino M.D. 08/24/2024 2:48 PM Knee X-Ray 08/24/24 11:47 XR knee LT 1 or 2V routine CLINICAL HISTORY: Left knee pain following injury. COMPARISON: None FINDINGS: Alignment of the left knee is anatomic. There is no acute fracture. There is no joint effusion. There are no osseous lesions. IMPRESSION: No fractures within the left knee. No left knee joint effusion. ACT 112: Negative or not required by law. Electronically signed by: Jerman Trevino M.D. 08/24/2024 2:54 PM Tibia/Fibula X-Ray 08/24/24 11:47 XR tibia fibula LT 2V CLINICAL HISTORY: Lower leg trauma TECHNIQUE: 2 radiographic views of the left leg were obtained. Comparison: None available at the time of this dictation. FINDINGS: There is no evidence of an acute fracture. Joint spaces are well-preserved. No soft tissue abnormality is seen. IMPRESSION: No evidence of acute osseous injury. ACT 112: Negative or not required by law. Electronically signed by: Eugene Chavez M.D. 08/24/2024 2:53 PM Medications Administered Home Medications Medication Instructions Recorded Confirmed Last Taken No Known Home Medications 08/24/24 08/24/24 Unknown Code Status & VTE Plan Code Status full code VTE Prophylaxis Plan VTE Prophylaxis will be ordered: Yes (1) Fall Encounter type: initial encounter Qualified Code(s): W19.XXXA - Unspecified fall, initial encounter (4) Depression Active/Remission status: currently active Depression Type: major depressive disorder Major depression episode severity: unspecified Major depression recurrence: recurrent Qualified Code(s): F33.9 - Major depressive disorder, recurrent, unspecified
[2024-08-24] MEDS: GABAPENTIN 600 MG TAB PO STA (17:46)
[2024-08-24] MEDS ORDERED: ONDANSETRON INJ 2 MG/ML 2 ML VIAL IV PRN (20:21)
[2024-08-24] MEDS ORDERED: GABAPENTIN 1200MG ALCOHOL WITHDRAWAL LOAD PO STA (20:21)
[2024-08-24] MEDS ORDERED: POLYETHYLENE (MIRALAX) 17 GM PACK PO PRN (20:21)
[2024-08-24 21:30] LABS: Prothrombin Time 10.5 Seconds (9.0-12.0)
[2024-08-24 21:55] LABS: HIV 4th Gen(HIV 1,2 AB+p24 Ag Negative (Negative)
[2024-08-24 22:08] LABS: Hep C Ab Rflx HepCQuant RNA Negative (Negative)
[2024-08-24] MEDS ORDERED: INFLUENZA VACC TS2024-25(6m+)/PF (IIV3) 0.5mL Syr IM ONE (22:27)
[2024-08-24] MEDS: FOLIC ACID 1 MG TAB PO SCH (22:30)
[2024-08-24] MEDS: THIAMINE HCL 100 MG TAB PO SCH (22:31)
[2024-08-24] MEDS: GABAPENTIN 600 MG TAB PO SCH (23:15)
[2024-08-24 23:58] LABS: Amphetamines+Metham, Urine Neg (Neg); Barbiturates, Urine Neg (Neg); Benzodiazepine, Urine Neg (Neg); Cocaine, Urine Neg (Neg); Fentanyl, Urine Neg (Neg); MDMA (Ecstacy), Urine Neg (Neg); Marijuana, Urine Neg (Neg); Methadone, Urine Neg (Neg); Opiate, Urine Neg (Neg); Phencyclidine, Urine Neg (Neg)
[2024-08-25 06:48] LABS: Albumin Level 3.7 gm/dl (3.4-5.0); BUN Creatinine Ratio 27.9 (10-20); Bilirubin Direct 0.3 mg/dl (0-0.2); Bilirubin,Total 1.2 mg/dl (0.2-1.0); Calcium 8.3 mg/dl (8.6-10.3); Creatinine Clr Calc Pharmacy 114.3 ml/min; Phosphorus 3.7 mg/dl (2.5-4.9); Potassium 3.4 mmol/L (3.5-5.1); Total Protein 6.1 gm/dl (6.0-8.3)
--- NOTE | 2024-08-25 09:28 | Hospitalist Progress Note ---
Date of Service August 25, 2024 Assessment & Plan (1) Fall: (2) Alcohol withdrawal syndrome without complication: (3) Alcohol use disorder, moderate, dependence: Plan: Patient presented to the hospital with a fall. The fall happened when patient was intoxicated with alcohol. Blood alcohol level elevated 105.5 Mg per DL on admission Patient underwent multiple imaging studies; negative for significant injury/fracture. Patient admitted to medical floor; started on alcohol withdrawal protocol with gabapentin and Ativan. GRACE negative Continue on thiamine and folic acid. Case management to provide resources for alcohol use disorder rehab; patient looking for inpatient rehab. (4) Depression: Plan: -per patient has been contributing factor to alcohol use --f/u outpatient with PCP regarding starting treatment for depression (5) Pain of left knee and lower leg: (6) Left leg weakness: Plan: -2/2 mechanical fall, imaging without evidence of fracture --PT ordered --voltaren cream and tylenol (7) Tobacco use disorder: Plan: -smokes a pack a day --nicotine patch prn Plan Full code DVT prophylaxis SCDs Please note the above document was generated using voice recognition software. It may contain grammatical, syntax or spelling errors. Any formal questions or concerns about the content, text or information contained within the body of this dictation should be directly addressed to the provider for clarification Admission and Anticipated Discharge Date Admission Date: August 24, 2024 Subjective No significant events overnight No significant signs of alcohol withdrawal; alert oriented x 3. No tremors. Vital signs are stable Review of Systems Review of Systems: All systems reviewed & are unremarkable except as noted in Subjective Physical Exam Physical Exam: Constitutional: WD/WN, vitals as above, NAD, sitting up in bed, pleasant, conversing easily Respiratory: normal respiratory effort, lungs clear to auscultation, no wheeze, rales, rhonchi. Normal insp/exp effort, no accessory muscle use Cardiovascular: RRR, no murmur, no edema Vessels: no JVD or carotid bruit Chest: normal inspection of chest Abdomen: normal bowel sounds, soft, nontender, no hepatosplenomegaly Musculoskeletal: Bruising on left knee; ROM intact Neurologic: PERRL, EOMI, accommodation nl, no face palsy, no dysarthria CN's II- XI intact bilaterally and moves all extremities Psychiatric: A+Ox3, euthymic affect Results & Data Results & Data Vital Signs (Past 12 Hours) Vital Signs Temp Pulse Resp BP Pulse Ox Pulse Ox O2 Del Method 08/25/24 08:09 36.3 C L 84 18 142/92 H 96 Room Air 08/25/24 03:48 36.8 C 77 18 134/88 97 Room Air 08/24/24 22:42 99 08/24/24 22:18 36.4 C L 77 18 151/91 H 99 Room Air 08/24/24 22:18 Room Air O2 Del Method 08/25/24 08:09 08/25/24 03:48 08/24/24 22:42 Room Air 08/24/24 22:18 08/24/24 22:18 (1) Fall Encounter type: initial encounter Qualified Code(s): W19.XXXA - Unspecified fall, initial encounter (4) Depression Active/Remission status: currently active Depression Type: major depressive disorder Major depression episode severity: unspecified Major depression recurrence: recurrent Qualified Code(s): F33.9 - Major depressive disorder, recurrent, unspecified
[2024-08-25] MEDS: POTASSIUM CHLORIDE CRTAB 20 MEQ TABCR PO STA (10:22)
[2024-08-25] MEDS: ACETAMINOPHEN 325 MG TAB PO PRN (10:26)
[2024-08-25] MEDS: NICOTINE 14 MG/24 HR PATCH TD PRN (12:48)
[2024-08-25] MEDS: GABAPENTIN 600 MG TAB PO SCH (14:20)
[2024-08-25] MEDS: LORazepam 1 MG TAB PO PRN (17:55)
[2024-08-26 08:06] LABS: BUN Creatinine Ratio 24.5 (10-20); Calcium 8.6 mg/dl (8.6-10.3); Creatinine Clr Calc Pharmacy 142.3 ml/min; Phosphorus 3.8 mg/dl (2.5-4.9); Potassium 4.1 mmol/L (3.5-5.1)
--- NOTE | 2024-08-26 08:47 | Discharge Summary ---
Date of Service August 26, 2024 Admission HPI Per Admitting Provider 33-year-old female with no past medical history presenting post fall. Fall happened last night after consuming a large amount of alcohol. She blacked out during this time. She states she likely hit her head. She also states she has some left leg pain. Did not denote any dizziness chest pain or other associated symptoms. Does not remember falling. No history of drug use. Feels safe at home. Denies abuse. Daily tobacco smoker. Drinks about 1/5 of alcohol daily. Family is history of alcohol use. Interested in getting sober. Admission Exam Per Admitting Provider VITALS: Reviewed. WEIGHT/BMI reviewed. GEN: appears slightly uncomfortable PSYCH: Good Judgment. AOx3. Normal memory, mood, and affect. HEENT -Head: noted left facial brusing -Eyes: PERRL, EOMI. No discharge or redness; -Ears: External ears are normal. Normal TMs. -Nose: Normal nares. -Mouth and throat: MMM. Normal gums, mucosa, palate,. Good dentition. NECK: Supple, with no masses. CV: tachycardic, regular rhythm LUNGS: CTAB, no w/r/c. ABD: Soft, NT/ND, NBS, no masses or organomegaly. : N/A SKIN: Warm, well perfused. No skin rashes or abnormal lesions. MSK: slight left leg weakness EXT: No clubbing, cyanosis, or edema. NEURO: slight left leg weakness 2/2 bruising and fall, no other defcitis or weakness, bilateral hand tremors noted Principal Diagnosis Mechanical fall Alcohol intoxication Alcohol withdrawal Discharge Exam Constitutional: WD/WN, vitals as above, NAD, sitting up in bed, pleasant, conversing easily Respiratory: normal respiratory effort, lungs clear to auscultation, no wheeze, rales, rhonchi. Normal insp/exp effort, no accessory muscle use Cardiovascular: RRR, no murmur, no edema Vessels: no JVD or carotid bruit Chest: normal inspection of chest Abdomen: normal bowel sounds, soft, nontender, no hepatosplenomegaly Musculoskeletal: Bruising on left knee; ROM intact Neurologic: PERRL, EOMI, accommodation nl, no face palsy, no dysarthria CN's II- XI intact bilaterally and moves all extremities Psychiatric: A+Ox3, euthymic affect Discharge Data Allergies Allergy/AdvReac Type Severity Reaction Status Date / Time none Allergy Unknown Uncoded 08/24/24 16:22 Consultations 08/24/24 15:25 ED Decision to Admit Stat 08/25/24 16:41 Consult Behavioral Health Liaison Routine Ordered Studies 08/24/24 11:44 CT cervical spine wo con Stat CT facial bones wo con Stat CT head/brain wo con Stat Hospital Course (1) Fall: (2) Alcohol withdrawal syndrome without complication: (3) Alcohol use disorder, moderate, dependence: (4) Depression: (5) Pain of left knee and lower leg: (6) Left leg weakness: (7) Tobacco use disorder: Plan Patient is a 33-year-old female who presented to the hospital with a fall. Fall happened after consuming large amount of alcohol. He denies syncope. Imaging studies during the hospitalization did not show any significant injury. Patient was admitted to the medical floor; started on alcohol withdrawal protocol with gabapentin and Ativan. Patient did not have significant withdrawa l symptoms like tremors, hallucinations. She was treated with Tylenol and Voltaren gel for knee pain. Case management assisted patient for alcohol rehab facility. Patient was discharged to alcohol rehab facility. Please note the above document was generated using voice recognition software. It may contain grammatical, syntax or spelling errors. Any formal questions or concerns about the content, text or information contained within the body of this dictation should be directly addressed to the provider for clarification Total Time Total Time Spent Total Time Spent (In Minutes): 35 Total Time Includes: Examination of the Patient, Discharge Planning, Medication Reconciliation, Communication With Other Providers and Other Discharge Plan Discharge Items Patient Disposition: Drug & Alcohol Rehab Reason For Visit: ALCOHOL WITHDRAWL Discharge Diagnosis: Alcohol intoxication Mechanical fall Activity: Resume your previous activity Non-emergency contact: Primary Care Provider Call non-emergency contact if: you have any medication questions and your symptoms worsen Follow-up/Referrals: Rosa Rodriguez DO [Primary Care Provider] - (Date & Time 09/04/2024 10:20 AM Provider: Shayla Self MD Department: General Internal Medicine [facility] ) Diet: Regular Addtl Attending Provider Instructions: You were admitted to the hospital after a mechanical fall. For pain control, you can use [id number] Tylenol or ibuprofen as well as Voltaren gel. You are prescribed thiamine and folic acid to be taken daily. Follow-up with your primary care doctor after discharge from rehab. Please discuss regarding starting Naltrexone with your PCP for Alcohol use disorder. Pending Studies at Discharge: No Stand-Alone Forms: My TeamVisibility, Smoking Cessation Skilled Items Patient informed of condition?: Yes DNR: No Discharge Level of Care: Other Communicable Disease: No Discharge Prognosis: Stable Lines: None Urinary Catheter: No Medications and DC Order Prescriptions: New thiamine HCl (vitamin B1) 100 mg Tablet 100 mg PO QAM 30 Days Qty: 30 0RF folic acid 1 mg Tablet 1 mg PO QAM 30 Days Qty: 30 0RF diclofenac sodium [Voltaren Arthritis Pain] 1 % Gel 4 g EXT Q12 PRN (Reason: knee pain) 7 Days Qty: 100 0RF Discharge Orders: Discharge Order (Routine); Ordered 08/26/24 Ordered By: Timo Aldrich Admission Data Admit Date/Time: 08/24/24 16:03 Attending Provider: Timo Aldrich Admit Provider: Aki Oconnor Primary Care Provider: Rosa Rodriguez Other Providers: Shavon Worrell
[2024-08-26] MEDS ORDERED: GABAPENTIN 600 MG TAB PO SCH (18:00)
[2024-08-28] MEDS ORDERED: GABAPENTIN 600 MG TAB PO SCH (06:00)
== END 2024-08-26 11:57 | disposition alcohol treatment (31) | DRG 897 ==
LOC: ED 10:55 → EDINP 16:03 → SUATTDRO 16:03 → 2E 22:07